=== PATIENT | female | born 1930 | race Caucasian/White ===

== ENCOUNTER 2016-05-08 10:37 | Emergency (ER) | payer MEDICARE, OTHER ==
[~2016-05-08] VITALS: Ht 162.6 cm; Wt 67.0 kg
[2016-05-08 10:41] VITALS: Ht 162.6 cm; Wt 67.0 kg
--- NOTE | 2016-05-08 12:59 | RADRPT ---
PROCEDURE: XR Elbow. CLINICAL INDICATION: Left elbow pain TECHNIQUE: Three views of the left elbow are available for review COMPARISON: None available FINDINGS: The osseous structures, articular spaces, and surrounding soft tissues of the left elbow are intact. No acute fracture or dislocation is seen. No radiopaque foreign body is identified. No fat pad sa il sign is identified to indicate a hemarthrosis. IMPRESSION: 1. Unremarkable left elbow x-ray series. RPTAT: HMJB .Deniz Noriega MD, Date Time Electronically viewed and signed by .Deniz Noriega MD, on 05/08/2016 12:59 .B/
--- NOTE | 2016-05-08 13:00 | RADRPT ---
PROCEDURE: XR Humerus. CLINICAL INDICATION: Left arm pain. Status post fall. TECHNIQUE: AP and lateral views of the left humerus were obtained. COMPARISON: No prior studies are available for comparison. FINDINGS: Spiral oblique fracture through the proximal shaft of the left humerus is seen. Mild angulation and displacement is identified. The humeral head is intact and the glenohumeral joint space is preserv ed and the distal humerus is unremarkable. IMPRESSION: 1. Mildly displaced spiral oblique fracture through the proximal shaft of the left humerus. RPTAT: HMJB .Deniz Noriega MD, MD Date Time Electronically viewed and signed by .Deniz Noriega MD, MD on 05/08/2016 12:59 .B/
--- NOTE | 2016-05-08 13:01 | RADRPT ---
PROCEDURE: XR Shoulder. CLINICAL INDICATION: Left shoulder pain TECHNIQUE: 3 views of the left shoulder are available for review. COMPARISON: None available FINDINGS: Fracture through the proximal shaft of the left humerus is identified. Mild displacement at the fra cture site is seen. The left humeral head is intact and the glenohumeral joint space is preserved. The left upper rib cage, left clavicle, and left scapula are all intact. No other abnormality is s een. Soft tissue swelling is identified. IMPRESSION: 1. Positive fracture of the proximal shaft of the left humerus. RPTAT: HMJB .Deniz Noriega MD, Date Time Electronically viewed and signed by .Deniz Noriega MD, on 05/08/2016 13:00 .B/
[2016-05-08] MEDS ORDERED: ULT50 PO (13:25)
[2016-05-08 13:51] VITALS: BP 184/88; PULSE 76; RESP 18; TEMP 98.2
--- NOTE | 2016-05-08 14:26 | ERD ---
DATE OF SERVICE: HISTORY OF PRESENT ILLNESS: The patient is an 85-year-old female coming in complaining of injury to her left humerus. The patient states that she fell 5 days ago. The patient states she has not bee n seen by a doctor. She did not have any loss of consciousness or head injury. She states that she has had severe pain, but has not been improving. PAST MEDICAL HISTORY: Denies any other medical problems. ALLERGIES TO MEDICATIONS: DENIES. PAST SURGICAL HISTORY: Denies. HOSPITALIZATIONS: Denies. REVIEW OF SYSTEMS: A 12-point review of systems was done. Refer to HPI for positives, all other sy stems negative. PHYSICAL EXAMINATION VITAL SIGNS: Temperature is 98.6, pulse is 110, blood pressure is 131/68, respiratory rate 18, O2 s at 93% on room air. Pain intensity 8/10. GENERAL: The patient is well-appearing, well-nourished, no acute distress. HEART: Regular rate and rhythm. No murmurs, clicks, rubs or gallops. No S3 or S4. CHEST: Clear to auscultation bilaterally. There are no rales, wheezes or rhonchi. HEENT: Atraumatic. Conjunctivae are pink. Pupils equal, round, and reactive to light. There is no s cleral icterus. Tympanic membranes clear bilaterally. Oropharynx clear. No nystagmus or photophobia . SKIN: There are ecchymotic changes noted over the left humerus. EXTREMITIES: The patient has tenderness to palpation over the left elbow as well as the left should er and the left humerus. There is no crepitus or obvious deformity noted on exam. The patient has normal radial, ulnar, and median nerve innervation to the distal left extremity. Pulses are intact. Compartments are soft. The patient is neurovascularly intact to the distal extremity. EMERGENCY ROOM COURSE: The patient had a 3-view x-ray done of the left elbow which showed unremarka ble left elbow x-ray series. The patient also had a 2-view x-ray done of the left humerus which alberto wed mildly displaced spiral oblique fracture of the proximal shaft of the left humerus. The patient had a 3-view x-ray of the left shoulder which showed a positive fracture of the proximal shaft of t he left humerus. The patient was placed in a long arm splint, was neurovascularly intact pre and po st-splint application, and placed in a sling. DIAGNOSIS: Humeral fracture. MEDICAL DECISION MAKING: The patient is neurovascularly intact. There are no open signs of open fr acture. The patient's pulses are intact and compartments are soft. The patient stable for outpatie nt management with orthopedics. DISCHARGE: The patient is discharged stable. The patient is given a copy results at the time of di scharreinaldo. The patient given a prescription for Toradol and told to follow up with ortho within 1 to 2 days for closer evaluation. The patient was told if symptoms change or worsen, to return to the [facility]. All other questions answered at time of discharge. Discharge summary given at the time of dedrick ellis. The patient understood and complied with plan. Dictated By: STU BLACKMAN for BARB RUSS/SUDEEP Conf#: [id number] DID#: [id number]
== END 2016-05-08 14:08 | disposition home or self-care (01) ==
LOC: FTE 10:37
DX: S42.342A Displaced spiral fracture of shaft of humerus, left arm, initial encounter for closed fracture (principal); S42.332A Displaced oblique fracture of shaft of humerus, left arm, initial encounter for closed fracture; I10 Essential (primary) hypertension; E11.9 Type 2 diabetes mellitus without complications; W18.39XA Other fall on same level, initial encounter; Y92.9 Unspecified place or not applicable
CPT/HCPCS: 73030; 73060

== ENCOUNTER 2016-06-13 09:25 | Day surgery (SDC) | payer MEDICARE, OTHER ==
[2016-06-12 13:59] VITALS: BMI 27.3
[2016-06-13] VITALS (9 sets, daily range): BP systolic 118–175; BP diastolic 47–74; PULSE 80–102; RESP 16–22; Ht 160 cm; Wt 75.0 kg
[~2016-06-13] VITALS: Ht 160 cm; Wt 75.0 kg
[~2016-06-13 09:25] MED LIST: CEFAZOLIN 1 GM INJ ONE; GLYCOPYRROLATE 1 MG INJ ONE; NEOSTIGMINE 3 MG/3 ML SYRINGE ONE; ROCURONIUM 50 MG INJ ONE; SUCCINYLCHOLINE CHLORIDE 100 MG/5 ML SYG IV ONE; TRAM50TA2 PO
[2016-06-13] MEDS ORDERED: ROPIVACAINE 0.5 % 30 ML VIAL ONE (12:18)
[2016-06-13] MEDS ORDERED: CEFAZOLIN 2 GM/50 ML (PMX) 50 ML IVPB SCH (12:30)
[2016-06-13] MEDS ORDERED: LACTATED RINGER'S 1,000 ML IV* SCH (12:30)
--- NOTE | 2016-06-13 12:36 | HPN ---
Date/Time of Note Date/Time of Note DATE: 06/13/16 TIME: 12:36 Interval H&P Admission Note Pt. seen H&P reviewed: No system changes SACHA DE LA CRUZ Jun 13, 2016 12:36
[2016-06-13] MEDS ORDERED: FENTAnyl 50 MCG/ML VIAL ONE (12:38)
[2016-06-13] MEDS ORDERED: DIPHENHYDRAMINE 50 MG INJ IV PRN (13:00)
[2016-06-13] MEDS ORDERED: ONDANSETRON 4 MG INJ IV PRN (13:00)
[2016-06-13] MEDS ORDERED: OXYCODONE/ACETAMINOPHEN (5/325) TAB PO PRN ×2 (13:00→17:00)
[2016-06-13] MEDS ORDERED: FENTAnyl 50 MCG/ML VIAL IV PRN (13:00)
[2016-06-13] MEDS ORDERED: HYDROmorphONE (0.2 MG/ML) 10ML SYG IV PRN ×2 (13:00)
[2016-06-13] MEDS ORDERED: PROCHLORPERAZINE 10 MG INJ IV PRN (13:00)
[2016-06-13] MEDS ORDERED: MEPERIDINE 25 MG INJ IV PRN (13:00)
[2016-06-13] MEDS ORDERED: PHENYLephrine (100 MCG/ML) 5ML SYG ONE (13:15)
[2016-06-13] MEDS ORDERED: LIDOCAINE 2% (SDV) 5 ML INJ ONE (13:27)
[2016-06-13] MEDS ORDERED: PROPOFOL 20 ML ONE (13:27)
[2016-06-13] MEDS ORDERED: HYDROmorphONE 2 MG/ML SYG ONE (13:28)
[2016-06-13] MEDS ORDERED: LABETALOL HCL 20MG INJ ONE (13:37)
[2016-06-13] MEDS ORDERED: POLYMYXIN/BACITRACIN 1L IRRIG IRR ONE (13:48)
[2016-06-13] MEDS ORDERED: ESMOLOL 10 ML ONE (15:21)
--- NOTE | 2016-06-13 16:35 | OPR ---
DATE OF OPERATION: 06/13/2016 SURGEON: Sacha Bradshaw MD ANESTHESIA: Peripheral nerve block plus general. PREOPERATIVE DIAGNOSIS: Left proximal humerus fracture. POSTOPERATIVE DIAGNOSIS: Left proximal humerus fracture. PROCEDURE: Open reduction internal fixation of left proximal humerus fracture. OPERATIVE FINDINGS: A displaced spiral fracture of the proximal humerus. INDICATION: This is an 85-year-old female with a left proximal humerus fracture. She was seen in clinic and found to have a significant displacement of approximately 100%. She had continued pain despite conservative management and options were discussed and she elected to proceed with operative intervention, understanding the risks and benefits. DESCRIPTION OF PROCEDURE: The patient was seen in the preoperative area and all of her questions were answered. Again, she gave informed consent, understanding the risks and benefits. She was taken to the operative suite and placed in supine position. A peripheral nerve block was performed at my request for perioperative anesthesia as well as postoperative pain relief. The patient was placed under general anesthesia and then placed into the beach chair position. Ancef 2 grams was administered and left upper extremity was prepped with ChloraPrep stick and draped in the usual sterile fashion. A deltopectoral approach with a distal extensile approach was utilized. Sharp dissection carried down through skin and subcutaneous tissue. The deltopectoral interval was identified and was bluntly dissected between. The cephalic vein was retracted medially. The subdeltoid space was bluntly dissected and a retractor placed. The rotator interval was opened revealing the biceps tendon and the greater tuberosity. Distally the fracture fragment was identified and sharp and blunt dissection was utilized to free up the fracture fragments. The brachialis muscle was gently elevated off of the anterior humerus in order to make a space for the extensile proximal humerus plate. After all soft tissues were cleared off the anterolateral aspect of the humerus, the fracture was reduced with a pointed reduction clamp. A lag screw was placed, which was an Acumed 3.5 mm screw. The fracture was quite stable and x-ray imaging confirmed near anatomic alignment and appropriate screw position. An Acumed proximal humerus plate was placed across the fracture site and cortical and locking screws were placed, both proximally and distally. Final x-ray imaging showed stable fracture positioning with near anatomic alignment and appropriate hardware position. The wound was copiously irrigated and a portion of the superior pec and deltoid which had been taken down was repaired with 0 Ethibond. The deep dermal layer was closed with 3-0 Vicryl as well as 4-0 Monocryl. Laney were used for the skin. Xeroform was placed over the wound followed by sterile gauze and Tegaderm. The patient was awakened from anesthesia and placed back in the supine position. She was taken to postoperative suite in stable condition and tolerated the procedure well without complications. SPECIMENS: None. ESTIMATED BLOOD LOSS: 200 mL. Sponge, instrument, and needle counts correct. IMPLANTS: Acumed proximal humerus plate. X-RAY: C-arm shots 6 images. CONDITION AT DISCHARGE: Stable. Dictated By: SACHA JOHNSON/SUDEEP Conf#: [id number] DID#: [id number]
--- NOTE | 2016-06-14 07:40 | RADRPT ---
PROCEDURE: X-ray fluoroscopy guidance CLINICAL INDICATION: Injury, pain TECHNIQUE: Fluoroscopic guidance was utilized for left humeral ORIF. COMPARISON: None available FINDINGS: Fluoroscopic guidance was provided. 0.0 minutes of fluoroscopy time was utilized for the procedure. 5 images were obtained during the procedure in progress. Cumulative dose is 0.088 mGy and 0.0026 mGym2. IMPRESSION: 1. X-ray fluoroscopic guidance, as above. RPTAT: QQ .Chago Monk MD, MD Date Time Electronically viewed and signed by .Chago Monk MD, on 06/14/2016 07:39 .R/
== END 2016-06-13 18:06 | disposition home or self-care (01) ==
LOC: SDS 09:25
PROVIDERS: ATTEND Orthopaedic Surgery Hand Surgery
DX: S42.392D Other fracture of shaft of left humerus, subsequent encounter for fracture with routine healing (principal); X58.XXXD Exposure to other specified factors, subsequent encounter; I10 Essential (primary) hypertension; E78.5 Hyperlipidemia, unspecified
CPT/HCPCS: 24515; 73060; J0330; J0690; J1170; J2370; J2710; J2795; J3010